=== PATIENT | female | born 1990 | race Hispanic/Latino ===

== ENCOUNTER 2019-05-18 08:11 | Inpatient (IN) | payer OTHER ==
[2019-05-18 08:30] VITALS: BMI 26.9
[2019-05-18] MEDS ORDERED: hydrALAZINE 20 MG/ML VIAL SLOW IVP PRN ×3 (09:24→20:54)
--- NOTE | 2019-05-18 10:13 | HP ---
TIME OF EVALUATION: Roughly 0915 hours. LOCATION: Labor and Delivery in bed 5. REASON FOR EVALUATION: Suspected contractions at 37 weeks and 5 days. The patient of Dr. Aldo Person. HISTORY OF PRESENT ILLNESS: In brief, this is a 29-year-old G1 with an EDC of June 03, placing her at 37 weeks and 5 days, here for contractions since 349. She states contractions every 3 to 5 minutes. She denies vaginal bleeding or leakage of fluid. She denies any issues. She does have a history of asthma with her last outbreak/shortness of breath episode being in August. REVIEW OF SYSTEMS: Complete review of systems was reviewed and is otherwise pertinent positive as per HPI. PAST MEDICAL HISTORY: Asthma as previously dictated. ALLERGIES: GABAPENTIN. PAST SURGICAL HISTORY: None. OB HISTORY: She is a G1, P0. SOCIAL HISTORY: Negative. PHYSICAL EXAMINATION: VITAL SIGNS: Blood pressure is 120/77, pulse is 75, and her temperature is 98.8. GENERAL: Clinically, she is in no acute distress. ABDOMEN: Cervical exam by our first examiner (RN) was 4 to 5 cm dilated, 80% effaced, -1 station. Bag of water intact. presentation is cephalic. monitor, heart tones are in the 130s to 140s with moderate variability and they are category one. Tocodynamometer is slightly with an irregular baseline, but this is due to positioning, but they are about every 3 minutes on the monitor. INTERVENTIONS ORDERED: The patient desires to ambulate and we will check her again in 2 hours. ASSESSMENT: This is a primigravida at early term (37 weeks and 5 days) at the latent phase of labor at 4 to 5 cm. She is GBS negative. Pain is well controlled. PLAN: 1. Labor information given. 2. I have seen and evaluated the patient at bedside. 3. No acute evidence of asthma exacerbation. 4. If the patient has hemorrhage, we will not administer Hemabate (carboprost). 5. We will recheck cervix in 2 hours from her first exam and if there is evidence of cervical progress or maternal/ instability, we will admit. 6. If she remains the same, we will consider outpatient discharge or we will keep her for conservative care if pain is an issue. Job ID: [id number]
[2019-05-18] MEDS: Lactated Ringer's 1,000 ML IV SCH (11:02)
[2019-05-18] MEDS ORDERED: Promethazine HCl 25 MG/ML VIAL IM PRN ×4 (11:05→20:54)
[2019-05-18] MEDS ORDERED: NS / Oxytocin 40 units/1000ml 1,000 ML IV PRN (11:05)
[2019-05-18] MEDS ORDERED: Ibuprofen 800 MG TAB PO PRN (11:05)
[2019-05-18] MEDS ORDERED: Lidocaine 1% (PF) 30 ML VIAL SC PRN (11:05)
[2019-05-18] MEDS ORDERED: Ondansetron PF 4 MG/2 ML Vial IVP PRN ×4 (11:05→20:54)
[2019-05-18] MEDS ORDERED: Butorphanol Tartrate 1 MG/ML VIAL SLOW IVP PRN (11:05)
[2019-05-18] MEDS ORDERED: HYDROcodone/Acetaminophen 5/325 mg Tablet PO PRN ×4 (11:05→20:54)
--- NOTE | 2019-05-18 11:05 | PDOC.EVN ---
Event Note - Event Note Event Note: Follow up exam: 6cm Admit for labor, active phase...early term. GBS negative [place] Text Dr Person (done)
[2019-05-18 11:52] LABS: Hemoglobin 11.4 g/dL (12.0-16.0); Mean Corpuscular Hemoglobin 30.9 pg (27.0-31.0); Mean Corpuscular Volume 90.7 fL (78.0-98.0); Mean Platelet Volume 7.3 fL (7.4-10.4); Platelet Count 212 thou/uL (130-400); RBC Distribution Width 12.4 % (11.5-14.5); Red Blood Cell (RBC) Count 3.69 mill/uL (4.20-5.40)
[2019-05-18] MEDS ORDERED: Fentanyl 4 mcg/Bup 0.1% Cadd 100 ML ONE (12:12)
[2019-05-18] MEDS ORDERED: Lidocaine 1.5%/Epinephrine 1:200,000 5 ML AMPUL IJ ONE (12:13)
[2019-05-18 12:35] LABS: HBSAg Index 0.34 S/CO (0-0.99); HIV (1/2) Antibody/Antigen Non-Reactive (NonReactive); HIV 1/2 INDEX 0.09 S/CO (<1.00); Hep B Surf Ag Non-Reactive S/CO (NonReactive); Syphilis Antibody Nonreactive (Nonreactive); Syphilis Antibody Index 0.03 S/CO (<1.00 Non-Reactive)
[2019-05-18] MEDS ORDERED: ePHEDrine/0.9% NaCl/PF SYRINGE 50 mg/10 ml SLOW IVP PRN ×2 (12:47→13:01)
[2019-05-18] MEDS ORDERED: Lactated Ringer's 500 ML IV PRN ×2 (12:47→13:01)
[2019-05-18] MEDS ORDERED: Acetaminophen 325 MG TAB PO PRN ×2 (12:47→13:00)
[2019-05-18] MEDS ORDERED: diphenhydrAMINE 50 MG/ML VIAL IVP PRN ×2 (12:47→13:01)
[2019-05-18] MEDS ORDERED: Naloxone HCl 0.4 mg/ml Vial IVP PRN ×4 (12:47→13:01)
[2019-05-18] MEDS ORDERED: Fentanyl 4 mcg/Bupivacaine 0.1% Cassette 100 ML EPIDURAL SCH ×2 (13:00→13:15)
[2019-05-18] MEDS ORDERED: Communication Order-Pharmacy FS SCH ×2 (13:00)
[2019-05-18] MEDS ORDERED: NS w/ Oxytocin 10 units 500 ML ONE (13:57)
--- NOTE | 2019-05-18 14:16 | PDOC.EVN ---
Event Note - Event Note Event Note: AROM NOTE OBGYN onCall Requested to perform AROM by Dr baron. AROM discussed with the patient. AROM performed without issue. IUPC not placed as she was now 880/0. Mod amount of clear fluid, no malodor. FHTs 140s, no decel.
[2019-05-18] MEDS ORDERED: NS w/ Oxytocin 10 units 500 ML IVPB SCH (14:30)
[2019-05-18] MEDS ORDERED: PROVENTIL INHALER 6.7 G (200 INHALATIONS) INH PRN (19:21)
[2019-05-18] MEDS ORDERED: Milk Of Magnesia 30 ML UDCUP PO PRN (20:54)
[2019-05-18] MEDS ORDERED: Preparation H Ointment 28 GM TUBE PR PRN (20:54)
[2019-05-18] MEDS ORDERED: NS / Oxytocin 40 units/1000ml 1,000 ML IV SCH (20:54)
[2019-05-18] MEDS ORDERED: Zolpidem Tartrate 5 MG TAB PO PRN (20:54)
[2019-05-18] MEDS ORDERED: diphenhydrAMINE 25 MG CAP PO PRN (20:54)
[2019-05-18] MEDS ORDERED: Tranexamic Acid 1,000 MG, Admixture Fee 1 EACH in Sodium Chloride 0.9% 250 ML 250 ML IVPB PRN (20:54)
[2019-05-18] MEDS ORDERED: Benzocaine-Menthol 82.5 ML CAN TOP PRN (20:54)
[2019-05-18] MEDS ORDERED: Bisacodyl 10 MG SUPP PR PRN (20:54)
[2019-05-18] MEDS ORDERED: Lanolin Ointment 7 GM TUBE TOP PRN (20:54)
[2019-05-19] MEDS: Ibuprofen 800 MG TAB PO SCH ×4 (05:03→21:19)
[2019-05-19] MEDS: Ferrous Sulfate 325 MG TAB PO SCH (08:20)
[2019-05-19] MEDS ORDERED: Adacel (T-DAP) 0.5 ML SYRINGE IM ONE (09:00)
[2019-05-19] MEDS ORDERED: Prenatal Vitamin 1 TAB PO SCH (09:00)
[2019-05-19] MEDS: Prenatal Vitamin 1 TAB PO SCH (10:26)
[2019-05-19] MEDS: Docusate Calcium (SURFAK) 240 MG CAP PO SCH ×3 (10:27→21:18)
--- NOTE | 2019-05-19 12:08 | PDOC.PP ---
Post Progress Note Post Day #: PPD1 Subjective: Up to BR. No reported complaints. PO intake tolerated: yes Ambulation: yes Vital Signs (12 hours) Temp Pulse Resp BP Pulse Ox 05/19/19 11:30 98.0 F 87 16 99/66 05/19/19 08:20 97 05/19/19 08:00 98.2 F 68 15 93/51 L 97 05/19/19 05:00 97.9 F 71 18 105/53 L 05/19/19 00:55 98.1 F 71 18 111/56 L Weight Weight 62.596 kg - Physical Examination General: NAD Respiratory: non-labored breathing Psychiatric: normal affect Result Diagrams: 05/18/19 11:29 Additional Labs: Post Labs Blood Type O POSITIVE 05/18/19 12:05 Hep Bs Antigen Non-Reactive S/CO (NonReactive) 05/18/19 11:29 - Assessment/Plan Doing well. Routine PP care. Anticipate home 05/20/19.
[2019-05-20] MEDS: Ibuprofen 800 MG TAB PO SCH ×2 (06:11→10:18)
[2019-05-20] MEDS: Ferrous Sulfate 325 MG TAB PO SCH ×2 (06:13→10:06)
[2019-05-20 08:33] VITALS: BP 100/59; TEMP 97.6
[2019-05-20] MEDS: Prenatal Vitamin 1 TAB PO SCH (10:06)
[2019-05-20] MEDS: Docusate Calcium (SURFAK) 240 MG CAP PO SCH (10:06)
[2019-05-20] MEDS: Lactated Ringer's 1,000 ML IV SCH (10:18)
== END 2019-05-20 13:00 | disposition home or self-care (01) | DRG 807 ==
LOC: L&D/OP 08:11 → L&D 11:03 → 3SW 21:56
PROVIDERS: ADMIT Obstetrics & Gynecology; ATTEND Obstetrics & Gynecology
PROC: 10907ZC Drainage of Amniotic Fluid, Therapeutic from Products of Conception, Via Natural or Artificial Opening (ICD-10-PCS; principal; 2019-05-18)
PROC: 10E0XZZ Delivery of Products of Conception, External Approach (ICD-10-PCS; 2019-05-18)
PROC: 0KQM0ZZ Repair Perineum Muscle, Open Approach (ICD-10-PCS; 2019-05-18)
PROC: 3E033VJ Introduction of Other Hormone into Peripheral Vein, Percutaneous Approach (ICD-10-PCS; 2019-05-18)
DX: O69.81X0 Labor and delivery complicated by cord around neck, without compression, not applicable or unspecified (principal); Z37.0 Single live birth; O99.52 Diseases of the respiratory system complicating childbirth; O70.1 Second degree perineal laceration during delivery; J45.909 Unspecified asthma, uncomplicated; Z3A.37 37 weeks gestation of pregnancy; Z88.8 Allergy status to other drugs, medicaments and biological substances
CPT/HCPCS: 36415; 51702; 85027; 86780; 86850; 86900; 86901; 87340; 87389; 99285; J2001; J2405; J2590; J3490

== ENCOUNTER 2020-04-11 14:42 | Day surgery (SDC) | payer OTHER ==
[2020-04-11 15:12] VITALS: BMI 27.6
[2020-04-11] MEDS ORDERED: hydrALAZINE 20 MG/ML VIAL SLOW IVP PRN (15:22)
--- NOTE | 2020-04-12 02:25 | SS ---
DATE OF ADMISSION: 04/11/2020 DATE OF DISCHARGE: 04/11/2020 REGULAR PHYSICIAN: Aldo Person MD EVALUATING PHYSICIAN: Darell Wu MD CHIEF COMPLAINT: Sharp lower abdominal pain. HISTORY OF PRESENT ILLNESS: Ms. Brady is a 29-year-old white G2, P1-0-0-1 with an estimated date of confinement of 07/04/2020, who presents complaining of the onset of sharp bilateral lower abdominal pain extending into her groin since this morning. She denies associated vaginal bleeding or ruptured membranes. Her care has been with Dr. Person, and she has had no significant complications. PAST OBSTETRICAL HISTORY: Includes one uncomplicated vaginal delivery at 37 weeks. PAST MEDICAL HISTORY: Asthma. PAST SURGICAL HISTORY: None. CURRENT MEDICATIONS: vitamins and fish oil. ALLERGIES: GABAPENTIN, WHICH SHE SAYS MAKES HER SHAKE UNCONTROLLABLY. SOCIAL HISTORY: Denies tobacco, alcohol, or drug use. FAMILY HISTORY: Unremarkable. REVIEW OF SYSTEMS: Denies nausea, vomiting, fever, chills, ruptured membranes, or vaginal bleeding. PHYSICAL EXAMINATION: VITAL SIGNS: In triage, her vital signs are stable. She is afebrile. GENERAL: She is in no acute distress. ABDOMEN: Soft, nontender, and gravid. PELVIC: The cervix to be closed and high. heart rate tracing is stable. There are no decelerations. No regular uterine contractions are seen. ASSESSMENT: 1. 28-week intrauterine . 2. No evidence of labor. 3. Suspect round ligament pain. PLAN: The nature of round ligament pain was discussed with her in detail. She was told to use Tylenol and she could also do warm tub soaks at home. She was reassured and sent home. labor precautions were reviewed with her in detail. Job ID: [id number]
== END 2020-04-11 16:15 | disposition home or self-care (01) ==
LOC: L&D/OP 14:42
PROVIDERS: ATTEND Obstetrics & Gynecology
DX: O99.89 Other specified diseases and conditions complicating pregnancy, childbirth and the puerperium (principal); R10.30 Lower abdominal pain, unspecified; O99.513 Diseases of the respiratory system complicating pregnancy, third trimester; J45.909 Unspecified asthma, uncomplicated; Z3A.28 28 weeks gestation of pregnancy; Z88.8 Allergy status to other drugs, medicaments and biological substances

== ENCOUNTER 2020-06-05 15:39 | Day surgery (SDC) | payer OTHER ==
[2020-06-05] MEDS ORDERED: hydrALAZINE 20 MG/ML VIAL SLOW IVP PRN (15:42)
--- NOTE | 2020-06-05 15:44 | PDOC.FPROB ---
FMR OB H&P: HPI - History of Present Illness Chief Complaint: Pelvic pain Indentification: 30yo at 35.6wks History of Present Illness: 30yo at 35.6wks presents for pelvic pain. Reports intermittent cramping that started around 0200 this morning. At 0945 cramping/contractions became more intense and regular. Initially was worse with position changes but since 0945 it has not been associated with movement. Denies LOF, vaginal bleeding/ abnormal discharge, dysuria. Endorses FM. Has hx of going into labor at 37wks. Reports this feels the same as at that time but more intense. Denies intercourse in the last 48hrs. Has only drank 2 bottles of water today. Primary Care Physician: Dr Person FMR OB H&P: Current - Care : 2 Para: 1001 Gestational age: 35.6wks Due date: 07/04/2020 - OB Labs Blood type: O RH: positive Antibody Screen: negative HIV: negative RPR: negative HepBsAg: negative Rubella: immune FMR OB H&P: History - Past Medical History PMH: Asthma - OB History OB History: 1 at 37wks, uncomplicated - Surgical History Sx History: Denies - Social History Social History: Denies alcohol, tobacco and drug use - Family History Family History: Unremarkable FMR OB H&P: Medications - Current Home Medications: Medication Instructions Recorded Confirmed Type Vit No.126/Iron/Folic 1 tablet PO DAILY 05/18/19 06/05/20 History [Classic ] Allergies/Adverse Reactions: Allergies Allergy/AdvReac Type Severity Reaction Status Date / Time gabapentin Allergy Verified 04/11/20 15:11 FMR OB H&P: ROS - Review of Systems General: denies: fever/chills, fatigue Eyes: denies: vision changes ENT: denies: nasal congestion, rhinorrhea Cardiovascular: denies: chest pain, edema Respiratory: denies: cough, congestion Gastrointestinal: denies: abdominal pain, nausea, vomiting Genitourinary (Female): reports: vaginal pain. denies: dysuria, vaginal discharge, vaginal bleeding, contractions Neurologic: denies: weakness, headache Integumentary: denies: rash, lesions FMR OB H&P: Vital Signs - Maternal Vital signs: BP 115/55 HR: 87 - Heart Tones Baseline: 125 Variability: moderate Acceleration: absent Deceleration: absent Category: category 1 [place] contractions every: every 2-3 min FMR OB H&P: Physical Exam - Physical Exam General: NAD, awake, alert and oriented HEENT: normocephalic and atraumatic, MMM, conjunctiva clear, no scleral icterus , grossly normal hearing Neck: supple, trachea midline Heart: RRR, no murmurs/rubs/gallops General: CTAB, no respiratory distress Abdomen: soft, gravid, non-tender Musculoskeletal: pulses present, no misalignment/asymmetry, no atrophy Neurological: no focal deficit Skin: no rash, good tugor Lymphatic: no unusual bruising or bleeding Psychiatric: intact recent and remote memory, good judgement and insight, normal mood and affect - Pelvic Exam Vulva: no masses, no lesions SVE: /-3 FMR OB H&P: A/P Disposition: 30yo at 35.6wks presents with CTX sIUP - FHTs Cat 1 - SVE /-3 - Elis every 2-3min. Encourage PO hydration. Will eval to see if she is in labor by repeating SVE in 2 hours. - UA by straight cath sent for UA Discussion: Date/Time: 06/05/20 1542 This H&P was discussed with Dr. Hummel who agrees with the above documentation and plan. Addendum - Attending - Attending Attestation Date/Time: 06/05/20 1811 I personally evaluated the patient and discussed the management with Dr. Carrera. I agree with the History, Examination, Assessment and Plan documented above with any addition or exceptions noted below. SVE /-3. [place] and though contractions are every 2-3min she is not in alot of discomfort. UA sig for ketones wiht normal spec gravity. Pt report she hasnt eaten since 11 today but has been otherwise eating and drinking normally. Pt was discharged home with labor precautions, encouragement for hydration and frequent meals. Fetus has a reactive nst. F/U Tues with her primary provider's partner.
[2020-06-05 16:24] VITALS: BMI 28.9
[2020-06-05 17:43] LABS: Bacteria/HPF None Seen HPF (None Seen); Bilirubin Negative (Negative); Blood, Urine 1+ (Negative); Clarity Clear (Clear); Glucose, Urine (Dipstick) Normal (Negative); Ketone, Urine Greater than 150 mg/dL (Negative); Leukocyte Negative Leu/uL (Negative); Nitrite Negative (Negative); Protein, Urine (Dipstick) 10 mg/dL (Neg-Trace); RBC/HPF 21-50 HPF (0-3); Specific Gravity, Urine 1.014 (1.002-1.036); Urobilinogen Normal mg/dL (Less than 2); WBC/HPF 0-3 HPF (0-3)
[2020-06-05 17:44] LABS: Urine Culture Reflex No No
== END 2020-06-05 17:52 | disposition home or self-care (01) ==
LOC: L&D/OP 15:39
PROVIDERS: ATTEND Obstetrics & Gynecology
DX: O99.89 Other specified diseases and conditions complicating pregnancy, childbirth and the puerperium (principal); R10.2 Pelvic and perineal pain; O47.03 False labor before 37 completed weeks of gestation, third trimester; Z3A.35 35 weeks gestation of pregnancy; Z79.899 Other long term (current) drug therapy
CPT/HCPCS: 81001; 99283

== ENCOUNTER 2020-07-05 16:16 | Inpatient (IN) | payer OTHER ==
[2020-07-05 16:39] VITALS: BMI 28.9
[2020-07-05] MEDS ORDERED: hydrALAZINE 20 MG/ML VIAL SLOW IVP PRN ×2 (16:48→21:35)
[2020-07-05] MEDS ORDERED: HYDROcodone/Acetaminophen 5/325 mg Tablet PO PRN ×2 (16:48→21:35)
[2020-07-05] MEDS ORDERED: Ibuprofen 800 MG TAB PO PRN (16:48)
[2020-07-05] MEDS ORDERED: NS / Oxytocin 40 units/1000ml 1,000 ML IV PRN (16:48)
[2020-07-05] MEDS ORDERED: Ondansetron PF 4 MG/2 ML Vial IVP PRN ×2 (16:48→21:35)
[2020-07-05] MEDS ORDERED: Lactated Ringer's 1,000 ML IV SCH (17:00)
[2020-07-05 17:04] LABS: Hemoglobin 13.7 g/dL (12.0-16.0); Mean Corpuscular HGB CONC 36.1 g/dL (32.0-36.0); Mean Corpuscular Hemoglobin 33.6 pg (27.0-31.0); Mean Platelet Volume 7.4 fL (7.4-10.4); Platelet Count 239 thou/uL (130-400); RBC Distribution Width 12.3 % (11.5-14.5); White Blood Cell (WBC) Count 8.8 thou/uL (4.8-10.8)
[2020-07-05] MEDS: Lidocaine 1% (PF) 30 ML VIAL SC PRN ×2 (17:20→17:46)
[2020-07-05 17:36] LABS: HBSAg Index 0.15 S/CO (0-0.99); Hep B Surf Ag Non-Reactive S/CO (NonReactive)
[2020-07-05 17:48] LABS: Syphilis Antibody Nonreactive (Nonreactive); Syphilis Antibody Index 0.03 S/CO (<1.00 Non-Reactive)
[2020-07-05] MEDS: Misoprostol 200 MCG TAB ONE ×2 (18:16→19:58)
[2020-07-05] MEDS ORDERED: Lidocaine 1% (PF) 30 ML VIAL ONE (18:24)
[2020-07-05] MEDS ORDERED: Benzocaine-Menthol 82.5 ML CAN TOP PRN (19:16)
[2020-07-05] MEDS ORDERED: NS / Oxytocin 40 units/1000ml 1,000 ML IV SCH (21:35)
[2020-07-05] MEDS ORDERED: diphenhydrAMINE 25 MG CAP PO PRN (21:35)
[2020-07-05] MEDS ORDERED: Milk Of Magnesia 30 ML UDCUP PO PRN (21:35)
[2020-07-05] MEDS ORDERED: Bisacodyl 10 MG SUPP PR PRN (21:35)
[2020-07-05] MEDS ORDERED: Lanolin Ointment 7 GM TUBE TOP PRN (21:35)
[2020-07-06] MEDS: Ibuprofen 800 MG TAB PO SCH ×5 (01:44→20:50)
[2020-07-06] MEDS: Docusate Calcium (SURFAK) 240 MG CAP PO SCH ×3 (01:44→20:50)
--- NOTE | 2020-07-06 02:43 | DN ---
DATE OF PROCEDURE: 07/05/2020 The patient delivered a female infant on 07/05/2020 at 1714 hours by a term spontaneous vaginal delivery. Apgars were 8 and 9. Weight is 4010 g. Placenta delivered spontaneously, followed by Pitocin infusion. At this time, I was called away to an emergency intraoperative consultation and Dr. Griffin, the resident physician, remained behind to close the second-degree laceration. Upon completion of my responsibilities in the intraoperative consultation, I returned to the patient to find if she was still bleeding, though not profusely was persistent. Inspection of the laceration demonstrated a sizable defect at the apex of the laceration and with her continuing to bleed, decision was made to remove the underlying suture and to reclose this laceration. On inspection, with the 2-0 chromic, the laceration was closed in the usual fashion including the previously identified defect. Quantitative blood loss is 650 mL. Assisting physician is Dr. Griffin. Delivering physician is Dr. Thompson Hummel. Counts were correct. Condition is stable in the room with baby in the immediate . Job ID: [id number]
[2020-07-06 06:16] LABS: Hemoglobin 11.1 g/dL (12.0-16.0)
[2020-07-06] MEDS: Ferrous Sulfate 325 MG TAB PO SCH ×2 (08:58→16:01)
[2020-07-06] MEDS ORDERED: Adacel (T-DAP) 0.5 ML SYRINGE IM ONE (09:00)
[2020-07-06] MEDS: Prenatal Vitamin 1 TAB PO SCH (09:35)
[2020-07-07] MEDS: Ibuprofen 800 MG TAB PO SCH ×2 (01:59→09:02)
[2020-07-07] MEDS: Ferrous Sulfate 325 MG TAB PO SCH (08:26)
[2020-07-07 08:42] VITALS: BP 114/63; TEMP 97.9
[2020-07-07] MEDS: Docusate Calcium (SURFAK) 240 MG CAP PO SCH (09:02)
[2020-07-07] MEDS: Prenatal Vitamin 1 TAB PO SCH (09:02)
== END 2020-07-07 09:10 | disposition home or self-care (01) | DRG 807 ==
LOC: L&D/OP 16:16 → L&D 16:49 → 3SW 23:22
PROVIDERS: ADMIT Obstetrics & Gynecology; ATTEND Obstetrics & Gynecology
PROC: 10E0XZZ Delivery of Products of Conception, External Approach (ICD-10-PCS; principal; 2020-07-05)
PROC: 0KQM0ZZ Repair Perineum Muscle, Open Approach (ICD-10-PCS; 2020-07-05)
PROC: 10907ZC Drainage of Amniotic Fluid, Therapeutic from Products of Conception, Via Natural or Artificial Opening (ICD-10-PCS; 2020-07-05)
DX: O70.1 Second degree perineal laceration during delivery (principal); Z37.0 Single live birth; Z3A.40 40 weeks gestation of pregnancy; O69.81X0 Labor and delivery complicated by cord around neck, without compression, not applicable or unspecified
CPT/HCPCS: 36415; 85014; 85018; 85027; 86780; 86850; 86900; 86901; 87340; 99285; J2001